=== PATIENT | female | born 1955 | race Caucasian/White ===

== ENCOUNTER 2019-01-16 07:38 | Observation (INO) | payer OTHER ==
[2019-01-16] MEDS ORDERED: GABAPENTIN 300 MG CAP PO ONE (08:16)
[2019-01-16] MEDS ORDERED: ceFAZolin 2 GM/DEXTROSE 100 ML IV ONE (08:16)
[2019-01-16] MEDS ORDERED: PHENAZOPYRIDINE HCL 200 MG TAB PO ONE (08:16)
[2019-01-16] MEDS ORDERED: ACETAMINOPHEN 500 MG TAB PO ONE (08:16)
[2019-01-16] MEDS ORDERED: LR 1,000 ML IV ONE (08:19)
[2019-01-16] MEDS ORDERED: LIDOCAINE 1% 2 ML INJ ID PRN (08:19)
--- NOTE | 2019-01-16 08:48 | PDHPUP ---
History & Physical Update H&P update statement: This history and physical update is based on an assessment of the patient which was completed after admission or registration (within 24 hours), but prior to the surgery/procedure. H&P update: H&P reviewed & patient examined, no change in patient's condition since H&P completed
[2019-01-16] MEDS ORDERED: MIDAZOLAM 2 MG/2 ML VIAL IVP ONE (09:10)
--- NOTE | 2019-01-16 09:10 | PDANEPAE ---
ANE History of Present Illness here for hysterectomy and sacrocolpopexy ANE Past Medical History - Cardiovascular History Hx Hypertension: Yes Hx Arrhythmias: No Hx Chest Pain: No Hx Coronary Artery / Peripheral Vascular Disease: No Hx CHF / Valvular Disease: No Hx Palpitations: No - Pulmonary History Hx COPD: No Hx Asthma/Reactive Airway Disease: Yes Hx Recent Upper Respiratory Infection: No Hx Oxygen in Use at Home: No Hx Sleep Apnea: No Sleep Apnea Screening Result - Last Documented: Negative Pulmonary History Comment: s/p bronchitis off abx, no productive cough or fevers , lungs clear - Neurologic History Hx Cerebrovascular Accident: No Hx Seizures: No Hx Dementia: No - Endocrine History Hx Diabetes: No - Renal History Hx Renal Disorders: No - Liver History Hx Hepatic Disorders: No - Neurological & Psychiatric Hx Hx Neurological and Psychiatric Disorders: No - Cancer History Hx Cancer: No - Congenital Disorder History Hx Congenital Disorders: No - GI History Hx Gastrointestinal Disorders: Yes Gastrointestinal History Comment: acid reflux. colonoscopy - Other Health History Other Health History: ear infection - Chronic Pain History Chronic Pain: No - Surgical History Prior Surgeries: bilat LILLI. cholecystectomy ANE Review of Systems Review of systems is: negative Review of Systems: - Exercise capacity Exercise capacity: >=4 METS METS (RN): 4 METS ANE Patient History - Allergies Allergies/Adverse Reactions: No Known Allergies Allergy (Verified 01/16/19 08:25) - Home Medications Home medications: home medication list seen and reviewed Home Medications: Atorvastatin Calcium [Lipitor 20 mg (*)] 20 mg PO HS 01/07/19 [Last Taken 22:00] Calcium Citrate [Citracal (OTC)] 200 mg PO BID 01/07/19 [Last Taken 01/09/19] Cholecalciferol Vit D3 [Vitamin D3 2000 units tab (OTC)] 2,000 units PO DAILY [Last Taken 01/09/19] Diltiazem HCl [Diltiazem 24Hr Cd] 240 mg PO DAILY 01/07/19 [Last Taken 01/16/19 05:45] Herbals/Supplements -Info Only 1 ea PO DAILY 01/07/19 [Last Taken 01/09/19] Hydrochlorothiazide [HCTZ (*)] 25 mg PO MWF 01/07/19 [Last Taken 01/14/19] [place]-3 Fatty Acids [Fish Oil 1000 mg (*)] 1,000 mg PO BID 01/07/19 [Last Taken 01/09/19] Omeprazole 20 mg PO DAILY 01/07/19 [Last Taken 01/16/19 05:45] busPIRone [Buspar (*)] 10 mg PO HS 01/07/19 [Last Taken 01/15/19 22:00] - NPO status NPO Status: no food or drink >8 hours NPO Since - Liquids (Date): 01/16/19 NPO Since - Liquids (Time): 07:15 NPO Since - Solids (Date): 01/15/19 NPO Since - Solids (Time): 21:00 - Smoking Hx Smoking Status: Former smoker - Family Anes Hx Family Hx Anesthesia Complications: none ANE Labs/Vital Signs - Vital Signs Vital Signs: reviewed preoperatively; see RN documention for details Blood Pressure: 124/91 Heart Rate: 67 Respiratory Rate: 16 O2 Sat (%): 95 Height: 161.29 cm Weight: 87.906 kg ANE Physical Exam - Airway Neck exam: FROM Mallampati Score: Class 1 Mouth exam: normal dental/mouth exam - Pulmonary Pulmonary: no respiratory distress - Cardiovascular Cardiovascular: regular rate and rhythym - ASA Status ASA Status: II ANE Anesthesia Plan Anesthesia Plan: general endotracheal anesthesia
[2019-01-16] MEDS ORDERED: PROPOFOL/EMULSION 500 MG/50 ML BOTTLE IV ONE ×2 (09:14→10:34)
[2019-01-16] MEDS ORDERED: MIDAZOLAM 2 MG/2 ML VIAL ONE (09:17)
[2019-01-16] MEDS ORDERED: BUPIVACAINE/EPI 0.5% 30 ML SDV ONE (09:30)
[2019-01-16] MEDS ORDERED: fentaNYL 100 MCG/2 ML INJ ONE ×2 (09:46→12:02)
[2019-01-16] MEDS ORDERED: SUGAMMADEX SODIUM 200 MG/2 ML VIAL IVP ONE (12:20)
[2019-01-16] MEDS ORDERED: ONDANSETRON 4 MG/2 ML VIAL IVP PRN ×2 (12:37→12:43)
[2019-01-16] MEDS ORDERED: LR 500 ML IV PRN (12:37)
[2019-01-16] MEDS ORDERED: HYDROCODONE/APAP 5/325 TAB PO PRN (12:37)
[2019-01-16] MEDS ORDERED: fentaNYL 100 MCG/2 ML INJ IVP PRN (12:37)
[2019-01-16] MEDS ORDERED: NALOXONE HCL 0.4 MG/ML INJ IVP PRN (12:37)
[2019-01-16] MEDS ORDERED: oxyCODONE IR 5 MG TAB PO PRN (12:37)
[2019-01-16] MEDS ORDERED: ALBUTEROL 3 ML DEYVIAL IH PRN (12:37)
[2019-01-16] MEDS ORDERED: PROMETHAZINE HCL 25 MG/ML INJ IVP PRN (12:37)
[2019-01-16] MEDS ORDERED: NS 500 ML IV PRN (12:37)
[2019-01-16] MEDS ORDERED: HYDROmorphONE/DILAUDID 1 MG/ML INJ IVP PRN (12:42)
[2019-01-16] MEDS ORDERED: OXYCODONE/APAP 5/325 TAB PO PRN (12:42)
--- NOTE | 2019-01-16 12:42 | POSTOPPROG ---
Post Op Note Date of Operation: 01/16/19 Surgeon: Tab Thorpe Supervisor Metalizing: Linda Wade Anesthesiologist: Paddy Anesthesia: GET(General Endotracheal) Pre-op Diagnosis: Uterovaginal prolapse Post-op Diagnosis: Same Procedure: Robotic hyst/BSO, sacrocolpopexy Findings: Uterine fibroids Inf/Abcess present in the surg proc area at time of surgery?: No EBL: Minimal Complications: None
[2019-01-16] MEDS ORDERED: ONDANSETRON DISINTEGRATING 4 MG TAB PO PRN (12:43)
[2019-01-16] MEDS ORDERED: LR 1,000 ML IV SCH (13:00)
--- NOTE | 2019-01-16 13:04 | POSTANESTH ---
Post Anesthetic Evaluation Cardiovascular Status: Normal, Stable Respiratory Status: Normal, Stable Level of Consciousness/Mental Status: Moderately Sleepy Pain Control: Adequate, Prn Tx Ordered Nausea/Vomiting Control: Adequate, Prn Tx Ordered Complications Possibly Related to Anesthesia: None Noted
[2019-01-16] MEDS ORDERED: HYDROmorphONE/DILAUDID 1 MG/ML INJ ONE (13:11)
[2019-01-16] MEDS: HYDROmorphONE/DILAUDID 1 MG/ML INJ IVP PRN ×2 (13:15→13:38)
--- NOTE | 2019-01-16 13:44 | GOP ---
[f rep st] OPERATIVE REPORT DATE OF OPERATION: 01/16/2019 SURGEON: Tab Thorpe MD COATING LINE WORKER: MARÍA ELENA Jamison. ANESTHESIA: General. PREOPERATIVE DIAGNOSIS: 1. Cystocele. 2. Rectocele. 3. Uterine prolapse. 4. Obesity. POSTOPERATIVE DIAGNOSIS: 1. Cystocele. 2. Rectocele. 3. Uterine prolapse. 4. Obesity. PROCEDURE PERFORMED: 1. Robotic assisted hysterectomy, bilateral salpingo-oophorectomy. 2. Sacral colpopexy with mesh. 3. Repair of cystocele and rectocele. FINDINGS: SPECIMENS: Uterus, bilateral tubes, and ovaries. ESTIMATED BLOOD LOSS: 20 mL. DESCRIPTION OF PROCEDURE: The patient was taken to the operating room where she was identified. Gen eral anesthesia was administered and found to be adequate. She was placed in the lithotomy position and prepared and draped in normal sterile fashion. A Santos catheter was placed in her bladder. An 8 mm infraumbilical incision was made with a scalpel. The Veress needle, with the CO2 gas flowing , was advanced into the peritoneal cavity. The abdomen was then insufflated with carbon dioxide gas. The 8 mm trocar, followed by the laparoscope, was then inserted. The upper abdomen had adhesions o f omentum along the midline extending to the umbilicus. Two lateral ports were placed on the left un mitchel direct visualization. The standard laparoscopic scissors were utilized to take down adhesions so the ports on the right could be placed. The patient was then placed in Trendelenburg position and t he DaVinci robot docked on the left side. The instruments were brought into the abdominal cavity und er direct visualization. Patient had an enlarged fibroid uterus. She had adhesions of bowel to the left adnexa. These were t aken down sharply. She also had adhesions to the pelvic sidewalls overlying the ureters. As a resul t, a bilateral ureterolysis was required. The peritoneum at the pelvic brims was incised. The urete rs were gently dissected free and lateralized off the overlying peritoneum and adhesions down to the bladder. Once this was accomplished, all the adhesions were taken down, and the bowel could be place d in the upper abdomen to accomplish the remainder of the surgery. The left infundibulopelvic vessel s were cauterized and transected. The anterior leaf of the broad ligament was then incised over the left uterine vessels and across the cervix. The bladder was gently dissected off the cervix and uppe r vagina. The left uterine vasculature was then cauterized and transected. The exact same procedure was performed on the patient's right side. The uterus was then bivalved to aid in removal through t he umbilicus. The uterus and upper 2/3 of the cervix were amputated from the lower 3rd of the cervix with the hot daniel. The specimen was placed in the right upper quadrant for later removal. A colpo probe was then placed in the vagina. The bladder was further dissected off the anterior vagi nal wall down to the level of bladder neck. The rectum dissected off the posterior vaginal wall down to the level of the perineal body. Measurements were then obtained and the mesh trimmed to size. The area of the sacral promontory was identified. The peritoneum was incised. The patient had an ex tremely thick layer of fat as well as the iliac arteries bifurcating low. As a result, very delicate dissection was required to clear the fat off the anterior longitudinal ligament at the level of the sacral promontory. Once this was accomplished, 2 sutures of 2-0 Graham-Anatoly were placed through the ant erior longitudinal ligament at the level of the upper sacral vertebral body below the intervertebral disk space. The mesh was then brought into the abdominal cavity. Three sutures of 4-0 Graham-Anatoly were used to attach to the distal posterior mesh to the perineal body. Two additional rows of Graham-Anatoly s utures were placed posteriorly. Three rows were placed anteriorly to suture the anterior mesh down t o the left of the bladder neck and laterally to the paravaginal tissue. The colpo probe was removed. The sacral arm of the mesh was placed over the promontory and the tension adjusted to resolve the c ystocele and rectocele without undue tension on the vagina. Once this was accomplished, the previous ly placed sutures were placed through the sacral arm of the mesh and then tied down. The excess mesh was then trimmed. The peritoneum was then closed over the entire mesh. The robot was then undocked . The specimen was removed through the umbilicus. The fascia was then closed with 0 Vicryl and the skin with 4-0 Monocryl. Vaginal packing was then placed. Anesthesia was reversed and the patient ta sandrita the PACU awake, in stable condition. COMPLICATIONS: None. DISPOSITION: Patient stable to PACU. /[id number]/MODL
[2019-01-16] MEDS ORDERED: HYDROCODONE/APAP 5/325 TAB ONE (13:54)
[2019-01-16] MEDS: SIMETHICONE 80 MG TAB CHEW PO SCH ×3 (14:56→21:24)
[2019-01-16] MEDS: GABAPENTIN 100 MG CAP PO SCH ×2 (15:41→21:24)
[2019-01-16] MEDS: HYDROCODONE/APAP 5/325 TAB PO PRN ×2 (17:42→21:25)
[2019-01-16] MEDS: KETOROLAC 15 MG/1 ML SDV IVP SCH ×2 (17:43→23:45)
[2019-01-16] MEDS ORDERED: busPIRone 10 MG TAB PO SCH (21:00)
[2019-01-16] MEDS: DOCUSATE SODIUM 100 MG CAP PO SCH (21:24)
[2019-01-17] MEDS: HYDROCODONE/APAP 5/325 TAB PO PRN ×2 (04:37→08:50)
[2019-01-17] MEDS: KETOROLAC 15 MG/1 ML SDV IVP SCH ×2 (05:26→11:14)
[2019-01-17 06:07] LABS: PLATELET COUNT 206 10^3/uL (150-400)
[2019-01-17] MEDS: GABAPENTIN 100 MG CAP PO SCH (08:50)
[2019-01-17] MEDS: DOCUSATE SODIUM 100 MG CAP PO SCH (08:50)
[2019-01-17] MEDS: SIMETHICONE 80 MG TAB CHEW PO SCH (08:50)
[2019-01-17] MEDS ORDERED: DILTIAZEM CD 120 MG CAP PO SCH (09:00)
[2019-01-17] MEDS ORDERED: PANTOPRAZOLE SODIUM 40 MG TAB PO SCH (09:00)
[2019-01-17 09:56] VITALS: BP 119/83
--- NOTE | 2019-01-17 11:07 | GDS ---
[f rep st] DISCHARGE SUMMARY DISCHARGE DIAGNOSIS: Uterovaginal prolapse. PROCEDURES: 1. Robotic-assisted laparoscopic hysterectomy, bilateral salpingo-oophorectomy. 2. Sacral colpopexy. 3. Repair of cystocele and rectocele. HISTORY: Linda is a 63-year-old female with symptomatic uterovaginal prolapse. She was taken to the operating room on 01/16/2019 where she tolerated the above-mentioned procedures without complication s. Her postoperative course was uneventful. The morning after surgery she was ambulating, voiding, and tolerating a general diet. She was discharged home with [place] and ibuprofen for pain. She is to fol low up in the office 2 weeks after discharge. /[id number]/MODL
[2019-01-18] MEDS ORDERED: HYDROCHLOROTHIAZIDE 25 MG TAB PO SCH (08:00)
== END 2019-01-17 12:11 | disposition home or self-care (01) ==
LOC: F3E 07:38 → FOB 14:30
PROVIDERS: ADMIT Obstetrics & Gynecology; ATTEND Obstetrics & Gynecology
DX: C54.1 Malignant neoplasm of endometrium (principal); D25.0 Submucous leiomyoma of uterus; N81.4 Uterovaginal prolapse, unspecified; N39.46 Mixed incontinence; E66.9 Obesity, unspecified
CPT/HCPCS: 57250; 57425; 58542; 88309; 88311; 88342; C1763; G0378; J0690; J1170; J1885; J2250; J2405; J2704; J3010